=== PATIENT | female | born 1955 | race Caucasian/White ===

== ENCOUNTER → 2020-05-08 09:48 | Outpatient (CLI) | payer BC, SELFPAY ==
--- NOTE | ~2020-05-08 | DEXA_ITS ---
Bone Density Report Name: Belle Hatfield Age: 64 Sex: Female Ethnicity: Date of : 1955 Indication: postmenopausal; screening for osteoporosis; Referring Provider: SHEELA, INES Study: Bone densitometry was performed. Exam Date: May 08, 2020 Accession number: [id number] Bone Density: Region BMD T-score Z-score Classification AP Spine (L1-L4) 0.923 -1.1 0.5 Osteopenia Femoral Neck (Left) 0.692 -1.4 -0.2 Osteopenia Total Hip (Left) 0.816 -1.0 -0.1 Normal Femoral Neck (Right) 0.674 -1.6 -0.3 Osteopenia Total Hip (Right) 0.809 -1.1 -0.1 Osteopenia Total Hip Mean 0.813 -1.1 -0.1 Osteopenia World Health Organization criteria for BMD impression classify patients as: Normal (T-score at or above -1.0), Osteopenia (T-score between -1.0 and -2.5), or Osteoporosis (T-score at or below -2.5). 10-year Fracture Risk(1): Major Osteoporotic Fracture 4.6% Hip Fracture 0.5% Reported Risk Factors: [place] (), Neck BMD=0.674, BMI=23.2 (1) FRAX(R) Version 3.08. Fracture probability calculated for an untreated patient. Fracture probability may be lower if the patient has received treatment. Previous Exams: Region Exam Age BMD T-score BMD Change BMD Change Date g/cm2 vs Baseline vs Previous AP Spine(L1-L4) 05/08/2020 64 0.923 -1.1 -0.167* -0.034* 02/04/2017 61 0.957 -0.8 -0.133* -0.024* 11/29/2013 58 0.980 -0.6 -0.109* 0.001 08/15/2010 55 0.979 -0.6 -0.110* -0.053* 07/20/2008 53 1.032 -0.1 -0.057* -0.057* 05/28/2006 51 1.089 0.4 Total Hip(Left) 05/08/2020 64 0.816 -1.0 -0.170 -0.044* 02/04/2017 61 0.860 -0.7 -0.126 0.006 11/29/2013 58 0.854 -0.7 -0.132 -0.020 08/15/2010 55 0.874 -0.6 -0.112 -0.077* 07/20/2008 53 0.951 0.1 -0.035 -0.032* 05/28/2006 51 0.983 0.3 -0.003 -0.003 02/19/2003 47 0.986 0.4 Total Hip(Right) 05/08/2020 64 0.809 -1.1 -0.212 -0.021 02/04/2017 61 0.830 -0.9 -0.191 -0.045* 11/29/2013 58 0.876 -0.5 -0.146 -0.002 08/15/2010 55 0.878 -0.5 -0.144 -0.046* 07/20/2008 53 0.924 -0.1 -0.097 -0.069* 05/28/2006 51 0.993 0.4 -0.028 -0.028 02/19/2003 47 1.021 0.7 *Denotes significance at 95% confidence level, LSC for AP Spine = 0.022 g/cm2, LSC for
== END ==
PROVIDERS: Visit Provider Nurse Practitioner
DX: Z12.31 Encounter for screening mammogram for malignant neoplasm of breast (principal); Z78.0 Asymptomatic menopausal state; M85.852 Other specified disorders of bone density and structure, left thigh; M85.851 Other specified disorders of bone density and structure, right thigh; M85.88 Other specified disorders of bone density and structure, other site
CPT/HCPCS: 77080

== ENCOUNTER → 2020-07-12 09:42 | Outpatient (CLI) | payer BC, SELFPAY ==
--- NOTE | ~2020-07-12 | MM_ITS ---
EXAMINATION: MM screening eligio BI w philipp HISTORY: Screening mammogram TECHNIQUE: Craniocaudal and mediolateral oblique 3-D tomosynthesis images were obtained and synthetic 2-D images were generated. CAD analysis was submitted and interpreted. COMPARISON: 02/10/2019 bilateral digital screening mammogram 02/27/2018 bilateral diagnostic digital mammogram and complete bilateral breast ultrasound 02/07/2018 bilateral digital screening mammogram BREAST PARENCHYMAL COMPOSITION: There are scattered areas of fibroglandular density. FINDINGS: There is no evidence of suspicious mass, calcification, or architectural distortion to sugg est malignancy in either breast. There has been no suspicious interval change. IMPRESSION: 1. No mammographic evidence of malignancy. 2. Recommend routine screening mammography in one year. BI-RADS Category 1: Negative Reviewed, dictated and finalized at location A.
== END ==
PROVIDERS: Visit Provider Obstetrics & Gynecology
DX: Z12.31 Encounter for screening mammogram for malignant neoplasm of breast (principal)
CPT/HCPCS: 77063; 77067

== ENCOUNTER → 2021-07-15 12:50 | Outpatient (CLI) | payer BC, SELFPAY ==
--- NOTE | ~2021-07-15 | MM_ITS ---
EXAMINATION: MM screening eligio BI w philipp HISTORY: Screening mammogram TECHNIQUE: Craniocaudal and mediolateral oblique 3-D tomosynthesis images were obtained and synthetic 2-D images were generated. CAD analysis was submitted and interpreted. COMPARISON: 07/12/2020, 02/10/2019 bilateral screening mammogram examinations BREAST PARENCHYMAL COMPOSITION: There are scattered areas of fibroglandular density. FINDINGS: There is no evidence of suspicious mass, calcification, or architectural distortion to sugg est malignancy in either breast. There has been no suspicious interval change. IMPRESSION: 1. No mammographic evidence of malignancy. 2. Recommend routine screening mammography in one year. BI-RADS Category 1: Negative Reviewed, dictated and finalized at location A.
== END ==
PROVIDERS: PCP Nurse Practitioner; Visit Provider Nurse Practitioner
DX: Z12.31 Encounter for screening mammogram for malignant neoplasm of breast (principal)
CPT/HCPCS: 77063; 77067